=== PATIENT | male | born 1980 | race Caucasian/White ===

== ENCOUNTER 2018-02-12 13:04 | Emergency (ER) | payer SELFPAY ==
[2018-02-12 13:11] VITALS: BP 123/82
--- NOTE | 2018-02-12 14:55 | EDPHY ---
H & P Stated Complaint: perianal numbness since [place] car ride Time Seen by Provider: 02/12/18 14:37 HPI/ROS: CHIEF COMPLAINT: Paresthesias HISTORY OF PRESENT ILLNESS: Patient is a 37-year-old thin man with no significant past medical history who comes to the emergency department sent from the urgent care for paresthesias of his perineal region. The patient states that he has noticed since December that when he sits in his car he has paresthesias to his anal and perineum and scrotal region for a few hours afterwards. This happens when he drives for more than an hour or 2 and does resolve with rest. He has not had any weakness in his legs. He has not had any bowel or bladder incontinence or retention. He has not had any fevers. He does not have any low back pain. No pain radiating down his legs. He states that he has always had a problem with this especially in riding bicycles and because of this he does not ride bicycles. He went to the urgent care today who referred him to the ER. He is currently asymptomatic. No frequent urination or discharge. REVIEW OF SYSTEMS: Constitutional: denies: chills, fever, recent illness, recent injury EENTM: denies: blurred vision, double vision, nose congestion Respiratory: denies: cough, shortness of breath Cardiac: denies: chest pain, irregular heart rate, lightheadedness, palpitations Gastrointestinal/Abdominal: denies: abdominal pain, diarrhea, nausea, vomiting, blood streaked stools Genitourinary: denies: dysuria, frequency, hematuria, pain Musculoskeletal: denies: joint pain, muscle pain Skin: denies: lesions, rash, jaundice, bruising Neurological: See HPI Hematologic/Lymphatic: denies: blood clots, easy bleeding, easy bruising Immunologic/allergic: denies: HIV/AIDS, transplant EXAM: GENERAL: Well-appearing, well-nourished and in no acute distress. HEAD: Atraumatic, normocephalic. EYES: Pupils equal round and reactive to light, extraocular movements intact, sclera anicteric, conjunctiva are normal. ENT: TMs normal, nares patent, oropharynx clear without exudates. Moist mucous membranes. NECK: Normal range of motion, supple without lymphadenopathy or JVD. LUNGS: Breath sounds clear to auscultation bilaterally and equal. No wheezes rales or rhonchi. HEART: Regular rate and rhythm without murmurs, rubs or gallops. ABDOMEN: Soft, nontender, normoactive bowel sounds. No guarding, no rebound. No masses appreciated. BACK: No CVA tenderness, no spinal tenderness, step-offs or deformities EXTREMITIES: Normal range of motion, no pitting or edema. No clubbing or cyanosis. NEUROLOGICAL: Cranial nerves II through XII grossly intact. Normal speech, normal gait. 5/5 strength, normal movement in all extremities, normal sensation , normal rectal exam, normal reflexes PSYCH: Normal mood, normal affect. SKIN: Warm, dry, normal turgor, no visible rashes or lesions. Source: Patient Exam Limitations: No limitations - Personal History Current Tetanus/Diphtheria Vaccine: Yes - Medical/Surgical History Hx Asthma: No Hx Chronic Respiratory Disease: No Hx Diabetes: No Hx Cardiac Disease: No Hx Renal Disease: No Hx Cirrhosis: No Hx Alcoholism: No Hx HIV/AIDS: No Hx Splenectomy or Spleen Trauma: No Other PMH: denies - Family History Significant Family History: No pertinent family hx - Social History Smoking Status: Former smoker Alcohol Use: Sober Drug Use: None Constitutional: Initial Vital Signs Temperature (C) 36.4 C 02/12/18 13:07 Heart Rate 88 02/12/18 13:07 Respiratory Rate 18 02/12/18 13:07 Blood Pressure 123/82 H 02/12/18 13:07 O2 Sat (%) 96 02/12/18 13:07 O2 Delivery Mode Room Air Allergies/Adverse Reactions: morphine Allergy (Verified 02/12/18 13:07) Home Medications: Medication Instructions Recorded NK [No Known Home Meds] 02/12/18 Medical Decision Making ED Course/Re-evaluation: The patient has intermittent paresthesia of his perineum. It seems very much to be associated with sitting on a firm seat in his car. He states that he has an old BMW with leather seats and they are very hard. We discussed the risk factors for cauda equina type syndrome or spinal lesion. The patient's symptoms do not seem to fit this however. He has no back pain. He does not have any weakness. No bowel or bladder abnormalities. His symptoms are intermittent and seem to be more of a peripheral neuropathy. His rectal exam is normal. He has no objective neurologic deficits on exam. We had a long discussion about this. He states that he has seen a chiropractor in the past and after some adjustment it did feel better. He also feels better when he exercises especially his gluteal muscles. I also gave him a prescription to follow up with physical therapy and a use a softer seat or get a cushion or doughnut. I warned him strictly to return to the ER if he developed any weakness or persistent paresthesias or bowel or bladder abnormalities or balance or pain or back pain etc. He understands and agrees with this plan. Differential Diagnosis: Partial list of the Differential diagnosis considered include but were not limited to; peripheral neuropathy, vascular insufficiency and although unlikely based on the history and physical exam, I also considered common equina , cord mass, radiculopathy, prostatitis. I discussed these differential diagnoses and the plan with the patient as well as the usual and expected course. The patient understands that the diagnosis is provisional and that in medicine we are not always correct and that further workup is often warranted. Usual and customary warnings were given. All of the patient's questions were answered. The patient was instructed to return to the emergency department should the symptoms at all worsen or return, otherwise to followup with the physician as we discussed. Departure - Departure Disposition: Home, Routine, Self-Care Clinical Impression: Paresthesia Condition: Fair Instructions: Paresthesia (ED) Additional Instructions: Follow up with physical therapy as we discussed, also do the exercise we discussed and find softer seating free a car. Return emergently if you have any weakness in her legs or if the paresthesias do not resolve after rest or few have any incontinence as we discussed. Referrals: NONE *PRIMARY CARE P,. [Primary Care Provider] - As per Instructions
== END 2018-02-12 15:07 | disposition home or self-care (01) ==
DX: R20.2 Paresthesia of skin (principal); Z87.891 Personal history of nicotine dependence